=== PATIENT | female | born 1995 | race African-American/Black ===

== ENCOUNTER 2023-08-04 21:52 | Emergency (ER) | payer OTHER ==
[~2023-08-04] VITALS: Ht 157.5 cm; Wt 46.3 kg
[2023-08-04] MEDS ORDERED: LORAZEPAM 2 MG/1 ML VIAL IV ONE (22:30)
[2023-08-04] MEDS ORDERED: LORAZEPAM 2 MG/1 ML VIAL ONE (22:34)
[2023-08-04 22:54] LABS: BASOPHILS # (AUTO) 0.1 K/UL (0.0-0.2); BASOPHILS % (AUTO) 0.7 % (0.0-2.0); EOSINOPHILS % (AUTO) 0.2 % (0.0-7.0); HEMOGLOBIN 10.8 g/dL (10.9-14.3); LYMPHOCYTES # (AUTO) 3.8 K/uL (0.8-4.8); LYMPHOCYTES % (AUTO) 37.6 % (20.5-51.5); MEAN CORPUSCULAR HEMOGLOBIN 25.9 uug (24.7-32.8); MEAN CORPUSCULAR HGB CONC 32 g/dL (32.3-35.6); MEAN CORPUSCULAR VOLUME 81.7 fL (75.5-95.3); MONOCYTES # (AUTO) 0.7 K/uL (0.1-1.30); MONOCYTES % (AUTO) 7.2 % (0.0-11.0); NEUTROPHILS # (AUTO) 5.5 K/uL (1.8-8.9); NEUTROPHILS % (AUTO) 54.3 % (38.5-71.5); PLATELET COUNT (AUTO) 433 K/uL (179-408); RED BLOOD CELL COUNT(AUTO) 4.15 MIL/uL (3.63-4.92); RED CELL DISTRIBUTION WIDTH 15.4 % (12.3-17.7); WHITE BLOOD COUNT (AUTO) 10.1 K/uL (3.8-11.8)
[2023-08-04 22:55] LABS: DIFFERENTIAL COMMENT 1
[2023-08-04 23:16] LABS: AMMONIA < 10 umol/L (11-32)
[2023-08-04 23:21] LABS: ETHANOL < 3 MG/DL (0-10)
[2023-08-04 23:38] LABS: CALCIUM 9.7 mg/dL (8.5-10.1); CARBON DIOXIDE 23 mmol/L (21-32); CHLORIDE 103 mmol/L (98-107); CREATININE 0.8 mg/dL (0.6-1.3); GLUCOSE 109 mg/dL (74-106); POTASSIUM 3.6 mmol/L (3.5-5.1); SODIUM SERUM 142 mmol/L (136-145); UREA NITROGEN, BLOOD 17 mg/dL (7-18)
[2023-08-04 23:46] LABS: THYROID STIMULATING HORMONE 2.323 mIU/mL (0.358-3.740)
[2023-08-04 23:47] LABS: ALANINE AMINOTRANSFERASE 28 U/L (14-59); ALBUMIN 4.2 g/dL (3.4-5.0); ALKALINE PHOSPHATASE 66 U/L (50-136); ASPARTATE AMINOTRANSFERASE 18 U/L (15-37); BILIRUBIN,DIRECT 0.1 mg/dL (0.0-0.2); BILIRUBIN,TOTAL 0.2 mg/dL (0.2-1.0); TOTAL PROTEIN, SERUM 8.3 g/dL (6.4-8.2)
[2023-08-04 23:49] LABS: ACETAMINOPHEN < 10.0 ug/mL (10-30)
[2023-08-05] MEDS ORDERED: IV NORMAL SALINE 1000 ML BAG IV ONE (01:15)
[2023-08-05] MEDS ORDERED: CLONIDINE HCL 0.1 MG TABLET PO ONE (06:00)
[2023-08-05] MEDS ORDERED: METOPROLOL TARTRATE 50 MG TABLET ONE (06:08)
[2023-08-05 06:11] VITALS: BP 125/94
[2023-08-05] MEDS ORDERED: METOPROLOL TARTRATE 50 MG TABLET PO ONE (06:15)
[2023-08-05 08:52] VITALS: O2SAT 98
== END 2023-08-05 08:45 | disposition home or self-care (01) ==
LOC: ER 21:54
DX: R00.0 Tachycardia, unspecified (principal); F41.9 Anxiety disorder, unspecified; Z98.890 Other specified postprocedural states; Z60.2 Problems related to living alone
CPT/HCPCS: 80076; 80048; 82140; 84443; 85025; 85730; 84484; 36415; 93005; 99284; 96374; 80299; 80320; 96361; J2060; J7040; A4606; A4663; G0480